=== PATIENT | male | born 1995 | race Asian ===

== ENCOUNTER 2018-01-16 23:17 | Emergency (ER) | payer OTHER ==
[2018-01-16 23:22] VITALS: BP 163/121
--- NOTE | 2018-01-16 23:59 | EDPHY ---
General Time Seen by Provider: 01/16/18 23:56 Narrative: CHIEF COMPLAINT: Possible dog bite HISTORY OF PRESENT ILLNESS: Patient presents with complaints of possible dog bite to right ankle. He says this happened within the past 2 areas. He says that he felt that his friend's dog became excited into thinks the dog bit him in the right ankle. He has no pain. No bleeding. No abrasion. No laceration. He just wants to make sure that there is no dog bite and that he is not going to get rabies. TIME OF INJURY: Less than 2 hr ago TETANUS STATUS: Up-to-date MEDICAL/SURGICAL/SOCIAL HISTORY: Uncomplicated. Current college student. REVIEW OF SYSTEMS: Ten systems reviewed and are negative unless otherwise noted in the HPI EXAMINATION General Appearance: Alert, no distress Head: normocephalic, atraumatic Cardiovascular: Pulses normal throughout. Brisk cap refill Neurological: A&O, normal steady gait Skin: Warm and dry, no rash. There is no puncture. No laceration. No abrasion. No signs of injury or trauma to the right medial ankle Extremities: Nontender, no pedal edema. Symmetric range of motion. No signs of trauma MDM: 11:55 p.m. Normal examination after patient concern of dog bite. There is no puncture, abrasion, laceration or injury to the skin with patient where he thought he was bit by dog. I see no signs of trauma or injury. Discharged with no further need for care SUPERVISION: This patient was independently evaluated without direct involvement of or examination by the attending physician. ED Precautions: Worsening pain. Erythema, edema, cyanosis, pallor, paresthesia or anesthesia. - History Smoking Status: Never smoked - Objective Vital Signs: Initial Vital Signs Temperature (C) 97.7 F 01/16/18 23:19 Heart Rate 104 H 01/16/18 23:19 Respiratory Rate 16 01/16/18 23:19 Blood Pressure 163/121 H 01/16/18 23:19 O2 Sat (%) 98 01/16/18 23:19 O2 Delivery Mode Room Air Allergies/Adverse Reactions: No Known Allergies Allergy (Unverified 01/16/18 23:22) Home Medications: Medication Instructions Recorded NK [No Known Home Meds] 01/16/18 Departure - Departure Disposition: Home, Routine, Self-Care Clinical Impression: Normal physical exam Condition: Good Instructions: Normal Exam (ED) Additional Instructions: Referrals: Mariana Grimm MD [Medical Doctor] - As per Instructions
== END 2018-01-17 00:12 | disposition home or self-care (01) ==
DX: Z04.3 Encounter for examination and observation following other accident (principal)